=== PATIENT | female | born 2000 | race Caucasian/White ===

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

== ENCOUNTER 2018-06-10 11:25 | Emergency (ER) | payer MEDICAID, OTHER ==
[2018-06-10 11:35] VITALS: BP 115/70
--- NOTE | 2018-06-10 11:40 | UC ---
Complaint Female HPI - HPI Summary HPI Summary: patient was at a water park a few days ago and spent the day in wet clothes-- developed a vaginal yeast infection---last night she treated with one time dose of monistat---is concerned that symptoms are better but not completely resolve - History Of Current Complaint Chief Complaint: UCGU Stated Complaint: PRIVATE Time Seen by Provider: 06/10/18 11:35 Hx Obtained From: Patient Hx Last Menstrual Period: 05/15/18 ?: No Onset/Duration: Sudden Onset Severity Initially: Moderate Severity Currently: Mild Pain Intensity: 0 Character: Burning Aggravating Factor(s): Nothing Alleviating Factor(s): Nothing Associated Signs And Symptoms: Positive: Negative - Allergies/Home Medications Allergies/Adverse Reactions: Allergies Allergy/AdvReac Type Severity Reaction Status Date / Time zinc Allergy Rash Verified 06/10/18 11:36 Home Medications: Home Medications Vitamin A CAP* 25,000 units PO DAILY 06/10/18 [History Confirmed 06/10/18] levETIRAcetam [Keppra 250] 500 mg PO DAILY 06/10/18 [History Confirmed 06/10/18] PMH/Surg Hx/FS Hx/Imm Hx Previously Healthy: No Neurological History: Seizures - Surgical History Surgical History: Yes Surgery Procedure, Year, and Place: FINGER. HERNIA X 2 - Family History Known Family History: Negative: Cardiac Disease, Hypertension, Diabetes - Social History Occupation: Employed Full-time Lives: With Family Alcohol Use: None Substance Use Type: Marijuana Substance Use Comment - Amount & Last Used: WEEKLY Smoking Status (MU): Never Smoked Tobacco Review of Systems Constitutional: Negative Skin: Negative Eyes: Negative ENT: Negative Respiratory: Negative Cardiovascular: Negative Gastrointestinal: Negative Genitourinary: Negative, Vaginal/Penile Itching Motor: Negative Neurovascular: Negative Musculoskeletal: Negative Neurological: Negative Psychological: Negative Is Patient Immunocompromised?: No All Other Systems Reviewed And Are Negative: Yes Physical Exam Triage Information Reviewed: Yes Appearance: Well-Appearing, No Pain Distress, Well-Nourished Vital Signs: Initial Vital Signs Temp 98.6 F 06/10/18 11:31 Pulse 79 06/10/18 11:31 Resp 16 06/10/18 11:31 BP 115/70 06/10/18 11:31 Pulse Ox 100 06/10/18 11:31 Vital Signs Reviewed: Yes Eye Exam: Normal Eyes: Positive: Conjunctiva Clear ENT Exam: Normal ENT: Positive: Normal ENT inspection, Hearing grossly normal. Negative: Trismus , Muffled voice, Hoarse voice Dental Exam: Normal Neck exam: Normal Neck: Positive: Supple, Nontender Respiratory Exam: Normal Respiratory: Positive: Chest non-tender, No respiratory distress, No accessory muscle use Cardiovascular Exam: Normal Cardiovascular: Positive: RRR, Brisk Capillary Refill Musculoskeletal Exam: Normal Musculoskeletal: Positive: Strength Intact, ROM Intact, No Edema Neurological Exam: Normal Neurological: Positive: Alert, Muscle Tone Normal Psychological Exam: Normal Skin Exam: Normal Complaint Female Dx - Course Course Of Treatment: reassured patient that monistat would be effective---does have a diflucan to take after the weekend if symptoms have not completly resolved - Differential Dx/Diagnosis Provider Diagnoses: vulvovaginal candidiasis Discharge - Sign-Out/Discharge Documenting (check all that apply): Patient Departure - Discharge Plan Condition: Stable Disposition: HOME Prescriptions: Fluconazole [Diflucan 150 MG (NF)] 150 mg PO ONCE #1 tab Patient Education Materials: Yeast Infection (ED) Referrals: Karen Willingham MD [Primary Care Provider] - If Needed - Billing Disposition and Condition Condition: STABLE Disposition: Home
== END 2018-06-10 12:19 | disposition home or self-care (01) ==
LOC: UCEAST 11:25
DX: B37.3 Candidiasis of vulva and vagina (principal); R56.9 Unspecified convulsions
CPT/HCPCS: 81003; 84702; 99212; G0463

== ENCOUNTER 2018-07-30 10:41 | Emergency (ER) | payer SELFPAY ==
--- NOTE | 2018-07-30 11:29 | ED ---
Complex/Multi-Sys Presentation - HPI Summary HPI Summary: The pt is a 18 y/o female with a MHx of eating disorders presenting to [facility] c/ o of N/V/D for the last 48 fours after a trip to [place]. She is concerned about possible food poisoning. She notes fever , abd pain (not active) and weight loss . The pt reports that she is trying to gain weight by eating healthy and exercising. 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 Onset/Duration: Lasting Days - 2 days, Still Present Associated Signs And Symptoms: Positive: Nausea, Vomiting, Diarrhea, Abdominal Pain, Fever, Other - Positive: weight loss Related History: Other - Recent travel from [place] - Allergies/Home Medications Allergies/Adverse Reactions: Allergies Allergy/AdvReac Type Severity Reaction Status Date / Time zinc Allergy Rash Verified 07/30/18 11:23 PMH/Surg Hx/FS Hx/Imm Hx Previously Healthy: No Endocrine/Hematology History: Denies: Hx Diabetes Respiratory History: Denies: Hx Asthma Sensory History: Denies: Hx Deafness Opthamlomology History: Denies: Hx Legally Blind Neurological History: Reports: Other Neuro Impairments/Disorders - Hx of epilepsy Denies: Hx CVA Psychiatric History: Reports: Hx Anxiety - Cancer History Cancer Type, Location and Year: None - Surgical History Surgery Procedure, Year, and Place: FINGER. HERNIA X 2 - Immunization History Immunizations Up to Date: Yes Infectious Disease History: No Infectious Disease History: Denies: Traveled Outside the [place] in Last 30 Days - Family History Known Family History: Negative: Cardiac Disease, Hypertension, Diabetes - Social History Occupation: Employed Full-time Lives: Dormitory/Roommates - Male domestic partner Alcohol Use: None Substance Use Type: Reports: Marijuana Substance Use Comment - Amount & Last Used: daily Smoking Status (MU): Never Smoked Tobacco Review of Systems Constitutional: Other - Positive: weight loss Positive: Fever Positive: Abdominal Pain, Vomiting, Diarrhea, Nausea All Other Systems Reviewed And Are Negative: Yes Physical Exam - Summary Physical Exam Summary: Appearance: Well appearing, no pain distress Skin: warm, dry, reflects adequate perfusion Head/face: normal Eyes: EOMI, BERT ENT: normal Neck: supple, non-tender Respiratory: CTA, breath sounds present Cardiovascular: RRR, pulses symmetrical Abdomen: non-tender, soft Bowel: present Musculoskeletal: normal, strength/ROM intact Neuro: normal, sensory motor intact, A&Ox3 Triage Information Reviewed: Yes Vital Signs On Initial Exam: Initial Vitals Temp Pulse Resp BP Pulse Ox 97.5 F 83 14 126/82 98 07/30/18 10:48 07/30/18 10:48 07/30/18 10:48 07/30/18 10:48 07/30/18 10:48 Vital Signs Reviewed: Yes Diagnostics - Vital Signs Vital Signs Temp Pulse Resp BP Pulse Ox 07/30/18 10:48 97.5 F 83 14 126/82 98 - Laboratory Result Diagrams: 07/30/18 11:46 07/30/18 11:46 Lab Statement: Any lab studies that have been ordered have been reviewed, and results considered in the medical decision making process. - Radiology CXR Radiology Interpretation Completed By: Radiologist - IMPRESSION: #. No evidence for acute intrathoracic disease. The ED physician reviewed this radiology report. Abd XR Radiology Interpretation Completed By: Radiologist - IMPRESSION: #. Negative exam. The ED physician reviewed this radiology report. Re-Evaluation - Re-Evaluation First Eval Re-Evaluation Time: 13:29 Change: Improved - Discussed the discharge plan with the pt. I advised the pt to follow up with her PCP in 3 days in case of any new or worsening of sx. Complex Multi-Symp Course/Dx Course Of Treatment: A 18 year-old F presents to the ED with a CC of N/V/D for the last 48 fours after a trip to [place]. She is concerned about possible food poisoning. She notes fever, abd pain (not active) and weight loss. The pt reports that she is trying to gain weight by eating healthy and exercising. A physical exam is unremarkable. An Abd Xray and CXR are both unremarkable. In the ED course, pt was given magnesium oxide 800mg PO which improved the symptoms. Patient will be discharged with a final Dx of acute nausea and vomiting. I advised the pt to follow up with her PCP in case of any new or worsening of symptoms. Pt is agreeable with this plan. - Diagnoses Differential Diagnoses/HQI/PQRI: Other - nausea/vomiting Provider Diagnoses: Nausea & vomiting Discharge - Sign-Out/Discharge Documenting (check all that apply): Patient Departure - DC - Discharge Plan Condition: Improved Disposition: HOME Prescriptions: Ondansetron ODT TAB* [Zofran 4 MG Odt TAB*] 4 mg PO Q8H PRN #20 tab.odt MDD 3 PRN Reason: Nausea Patient Education Materials: Acute Nausea and Vomiting (ED) Referrals: Karen Willingham MD [Primary Care Provider] - 3 Days Additional Instructions: Follow up with PCP in 3 days. Return to ED for any new or worsening symptoms - Billing Disposition and Condition Condition: IMPROVED Disposition: Home - Attestation Statements Document Initiated by Scribe: Yes Documenting Scribe: Shanna Betancourt Provider For Whom Olga is Documenting (Include Credential): Dr. Myron Melo MD Scribe Attestation: Shanna Garner , scribed for Dr. Myron Melo MD on 07/30/18 at 1626. Scribe Documentation Reviewed: Yes Provider Attestation: The documentation as recorded by the Shanna almonte accurately reflects the service I personally performed and the decisions made by , Dr. Myron Melo MD
[2018-07-30 11:59] LABS: ABS Basophils 0 10^3/ul (0-0.2); ABS Eosinophils 0 10^3/ul (0-0.6); ABS Monocytes 0.6 10^3/ul (0-0.8); ABS Neutrophils 7.1 10^3/ul (1.5-7.7); ABS Nucleated RBC 0 10^3/ul; Eosinophil % 0 % (0-6); Hematocrit 39 % (35-47); Hemoglobin 13.3 g/dl (12.0-16.0); Lymphocyte % 11.2 % (25-47); Mean Corpuscular HGB Conc 34 g/dl (31-36); Mean Corpuscular Hemoglobin 29 pg (27-31); Mean Corpuscular Volume 85 fL (80-97); Mean Platelet Volume 7.6 um3 (7.4-10.4); Nucleated Red Blood Cells % 0; Platelet Count 261 10^3/ul (150-450); Red Blood Count 4.62 10^6/ul (4.00-5.40); Red Cell Distribution Width 14 % (10.5-15); White Blood Count 8.8 10^3/ul (3.5-10.8)
[2018-07-30 12:08] LABS: INR 0.94 (0.77-1.02)
[2018-07-30 12:16] LABS: EGFR Non-African American 103.3 (>60)
[2018-07-30] MEDS ORDERED: Magnesium Oxide TAB* 400 MG PO ONE (12:17)
[2018-07-30] MEDS ORDERED: Ondansetron ODT TAB* 4 MG PO ONE (13:28)
[2018-07-30 13:41] VITALS: BP 121/71
--- NOTE | 2018-07-30 14:01 | RAD ---
Indication: Nausea and vomiting for 2 days. Fever. Comparison: Chest radiograph of the same date. Technique: Supine view of the abdomen. Report: Negative for free air beneath the diaphragm on the chest radiograph of the same date. Normal bowel gas pattern. No suspicious calcifications or mass effect. IMPRESSION: #. Negative exam.
--- NOTE | 2018-07-30 14:02 | RAD ---
INDICATION: Nausea, vomiting, fever. COMPARISON: No relevant prior exams available on the [facility] PACS for comparison. TECHNIQUE: Dual energy PA and routine lateral views of the chest were obtained. REPORT: Negative for free air beneath the diaphragm. No focal pulmonary lesion, compelling alveolar consolidation, pleural effusion, pneumothorax. Pneumothorax The heart, pulmonary vasculature, and mediastinal contours are unremarkable. Slight RIGHT convex curve of the thoracic spine. IMPRESSION: #. No evidence for acute intrathoracic disease.
== END 2018-07-30 13:43 | disposition home or self-care (01) ==
LOC: ED 10:41
DX: R11.2 Nausea with vomiting, unspecified (principal); R19.7 Diarrhea, unspecified; R50.9 Fever, unspecified; R10.9 Unspecified abdominal pain; R63.4 Abnormal weight loss; Z88.8 Allergy status to other drugs, medicaments and biological substances
CPT/HCPCS: 36415; 71046; 74018; 80053; 83690; 83735; 84702; 85025; 85610; 85730; 99282